=== PATIENT | female | born 1990 | race Caucasian/White ===

== ENCOUNTER 2018-04-11 17:20 | Emergency (ER) | payer OTHER ==
--- OUTSIDE RECORDS SUMMARY | 2018-04-11 17:23 | XMS REPORT | Clinical Summary ---
Author Author [facility] Organization [facility] Address Unknown Phone Unavailable Care Team Providers Care Sparker And Patcher Name Role Phone Asked, No Pcp PCP Unavailable Allergies Comments Active Allergy Reactions Severity Noted Date Lisinopril 10/26/2017 Medications End Date Status Medication Sig Dispensed Refills Start Date 10/31/2017 naproxen (NAPROSYN) 500 Take 1 tablet 10 tablet 0 201 MG tablet (500 mg 8 total) by mouth 2 (two) times a day with meals for 5 days. Active Problems Not on file Encounters Care Team Description Date Type Specialty Jeromy Rausch II, Markos Doherty DO Sprain of other ligament of left knee, initial encounter (Primary Dx) 10/26/2017 Emergency Emergency Medicine after 04/10/2017 Social History Date Tobacco Use Types Packs/Day Years Used Never Smoker Smokeless Tobacco: Never Used Alcohol Use Drinks/Week oz/Week Comments No Sex Assigned at Date Recorded Not on file Industry Job Start Date Occupation Not on file Not on file Not on file Travel End Travel History Travel Start No recent travel history available. Last Filed Vital Signs Time Taken Vital Sign Reading 10/26/2017 8:05 PM CDT Blood Pressure 179/116 10/26/2017 8:05 PM CDT Pulse 83 10/26/2017 5:19 PM CDT Temperature 37.1 C (98.7 F) 10/26/2017 8:05 PM CDT Respiratory Rate 18 10/26/2017 8:05 PM CDT Oxygen Saturation 95% - Inhaled Oxygen - Concentration - Weight - 10/26/2017 5:16 PM CDT Height 188 cm (6' 2") - Body Mass Index - Plan of Treatment Health Maintenance Due Date Last Done Comments CERVICAL CANCER SCREENING 2010 INFLUENZA VACCINE 09/28/2017 Procedures Comments Procedure Name Priority Date/Time Associated Diagnosis XR KNEE 1 OR 2 VW LEFT STAT 10/26/2017 7:08 PM CDT after 04/10/2017 Results * XR Knee 1 Or 2 Vw Left (10/26/2017 7:08 PM CDT) Narrative Performed At EXAMINATION: XR KNEE 1 OR 2 VW LEFT [facility] INDICATION: Knee paininitial exam COMPARISON: None IMPRESSION: 2 views of the knee were obtained. No visible acute fracture or dislocation. Large knee joint effusion. [facility]-[id number] Procedure Note Hm Interface, Radiology Results Incoming - 10/26/2017 7:22 PM CDT EXAMINATION: XR KNEE 1 OR 2 VW LEFT INDICATION: Knee pain initial exam COMPARISON: None IMPRESSION: 2 views of the knee were obtained. No visible acute fracture or dislocation. Large knee joint effusion. [facility]-[id number] Performing Organization Address City/State/Zipcode Phone Number [facility] [address] [place] [address] after 04/10/2017 Advance Directives Patient has advance care planning documents on file. For more information, arie santo contact: Willard Avina [address] [place] [address]
[2018-04-11] MEDS ORDERED: NIFEDIPINE 10 MG CAP PO STA (17:28)
[2018-04-11 18:08] LABS: BASOPHILS # (AUTO) 0.1 (0.0-0.1); BASOPHILS % 0.8 % (0.0-1.0); EOSINOPHILS # (AUTO) 0.1 (0.0-0.4); EOSINOPHILS % 1.2 % (0.0-6.0); HEMATOCRIT 45.4 % (34.2-44.1); HEMOGLOBIN 15.3 g/dL (12.0-16.0); LYMPHOCYTES # (AUTO) 3.4 (1.0-3.2); LYMPHOCYTES % 30.2 % (18.0-39.1); MEAN CORPUSCULAR HEMOGLOBIN 28.1 pg (28-32); MEAN CORPUSCULAR HGB CONC 33.7 g/dL (31-35); MEAN CORPUSCULAR VOLUME 83.5 fL (81-99); MONOCYTES # (AUTO) 0.8 (0.2-0.8); MONOCYTES % 7.2 % (4.4-11.3); NEUTROPHILS # (AUTO) 6.8 (2.1-6.9); NEUTROPHILS % 59.7 % (38.7-80.0); PLATELET COUNT 305 x10e3/uL (140-360); RED BLOOD COUNT 5.44 x10e6/uL (3.6-5.1); RED CELL DISTRIBUTION WIDTH 13.4 % (11.7-14.4)
[2018-04-11 18:20] LABS: INR 0.9
[2018-04-11 18:21] LABS: PARTIAL THROMBOPLASTIN TIME 33.5 seconds (23.8-35.5)
[2018-04-11 18:29] LABS: ALANINE AMINOTRANSFERASE 133 IU/L (0-55); ALBUMIN/GLOBULIN RATIO 1.1 (0.8-2.0); ALKALINE PHOSPHATASE 68 IU/L (40-150); ANION GAP 15.5 mmol/L (8-16); BLOOD UREA NITROGEN 8 mg/dL (7-26); BUN/CREATININE RATIO 10 (6-25); CALCIUM 9.6 mg/dL (8.4-10.2); CARBON DIOXIDE 25 mmol/L (22-29); CHLORIDE 101 mmol/L (98-107); CREATINE KINASE 121 IU/L (29-168); CREATININE, SERUM 0.82 mg/dL (0.57-1.11); EST GLOMERULAR FILTRATION RATE > 60 ML/MIN (60-); GLUCOSE 103 mg/dL (74-118); MAGNESIUM 1.9 MG/DL (1.3-2.1); POTASSIUM 3.5 mmol/L (3.5-5.1); SODIUM 138 mmol/L (136-145)
[2018-04-11 18:50] LABS: BILIRUBIN,URINE NEGATIVE (NEGATIVE); CLARITY,URINE HAZY (CLEAR); COLOR,URINE STRAW (YELLOW); KETONES,URINE NEGATIVE (NEGATIVE); LEUKOCYTE ESTERASE ,URINE NEGATIVE (NEGATIVE); NITRITE,URINE NEGATIVE (NEGATIVE); PREGNANCY TEST, URINE NEGATIVE (NEGATIVE); PROTEIN,URINE DIPSTICK 2+ (NEGATIVE); URINE UROBILINOGEN 0.2 mg/dL (0.2 - 1)
--- NOTE | 2018-04-11 18:56 | Diagnostic Imaging Report ---
Examination: Single AP view of the chest. COMPARISON: None. INDICATION: Hypertensive crisis DISCUSSION: Lines/tubes: None. Lungs: No definite consolidation. Left lower lung opacity May be due to to soft tissue attenuation. Pleura: No pleural effusion or pneumothorax. Heart and mediastinum: Heart size is prominent Bones and soft tissues: No acute bony abnormalities. IMPRESSION: No acute cardiopulmonary disease Signed by: Dr. Miguel Garcia M.D. on 04/11/2018 6:53 PM
[2018-04-11 19:05] LABS: AMORPHOUS SEDIMENT,URINE FEW (FEW); BACTERIA,URINE MANY /HPF; CALCIUM OXALATE CRYSTALS,UR FEW (FEW); EPITHELIAL CELLS,URINE MODERATE /LPF; RBC,URINE 0-5 /HPF (0-5)
[2018-04-11 19:06] LABS: MUCUS,URINE FEW (RARE)
--- NOTE | 2018-04-11 19:26 | Diagnostic Imaging Report ---
History: Headaches Comparison studies: None Technique: Axial images were obtained from the skull base to the vertex. Coronal and sagittal reconstructions obtained from the axial data. Dose modulation, iterative reconstruction, and/or weight based adjustment of the mA/kV was utilized to reduce the radiation dose to as low as reasonably achievable. Findings: Scalp/skull: No abnormalities. No fractures, blastic or lytic lesions. Extra-axial spaces: No masses. No fluid collections. Brain sulci: Appropriate for age. Ventricles: Normal in size and configuration. No hydrocephalus. Parenchyma: No abnormal densities. No masses, hemorrhage, acute or chronic cortical vascular insults. Sellar/suprasellar region: No abnormalities Craniocervical junction: Patent foramen magnum. No Chiari one malformation. IMPRESSION: 1. No abnormalities. 2. Pituitary tumor, mentioned in the patient's history, is beyond the scope of resolution for this noncontrast CT. Signed by: Dr. Juan C Cadena M.D. on 04/11/2018 7:23 PM
[2018-04-11 20:28] VITALS: BP 153/89
== END 2018-04-11 20:49 | disposition home or self-care (01) ==
LOC: ER 17:20
DX: I10 Essential (primary) hypertension (principal); E03.9 Hypothyroidism, unspecified; F41.9 Anxiety disorder, unspecified
CPT/HCPCS: 36415; 70450; 71045; 80053; 81001; 81025; 82550; 82553; 82948; 83735; 84443; 84484; 85025; 85610; 85730; 87086; 93005; 99284

== ENCOUNTER 2018-07-17 14:34 | Emergency (ER) | payer OTHER ==
[~2018-07-17] VITALS: Ht 182.9 cm; Wt 165.6 kg
--- OUTSIDE RECORDS SUMMARY | 2018-07-17 14:36 | XMS REPORT ---
Author Author [facility] Address Unknown Phone Unavailable Care Team Providers Care Pressure Supervisor Name Role Phone Susy SELLERS Unavailable Unavailable Problems This patient has no known problems. Allergies, Adverse Reactions, Alerts This patient has no known allergies or adverse reactions. Medications This patient has no known medications. Results Test Description Test Time Test Comments Text Results Atomic Results Result Comments CT BRAIN WO 2018-04-11 19:18:00 [place] [address] Patient Name: JERRY MOSS MR #: [id number] : 1990 Age/Sex: 27/F Req #: [id number] Adm Physician: Ordered by: ADRIÁN SELLERS MD Report #: [id number] Location: ER Room/Bed: Procedure: [id number] CT/CT BRAIN WO Exam Date: 04/11/18 Exam Time: 1830 REPORT STATUS: Signed History: Headaches Comparison studies: None Technique: Axial images were obtained from the skull base to the vertex. Coronal and sagittal reconstructions obtained from the axial data. Dose modulation, iterative reconstruction, and/or weight based adjustment of the mA/kV was utilized to reduce the radiation dose to as low as reasonably achievable. Findings: Scalp/skull: No abnormalities. No fractures, blastic or lytic lesions. Extra-axial spaces: No masses. No fluid collections. Brain sulci: Appropriate for age. Ventricles: Normal in size and configuration. No hydrocephalus. Parenchyma: No abnormal densities. No masses, hemorrhage, acute or chronic cortical vascular insults. Sellar/suprasellar region: No abnormalities Craniocervical junction: Patent foramen magnum. No Chiari one malformation. IMPRESSION: 1. No abnormalities. 2. Pituitary tumor, mentioned in the patient's history, is beyond the scope of resolution for this noncontrast CT. Signed by: Dr. Juan C Cadena M.D. on 04/11/2018 7:23 PM Dictated By: JUAN C CADENA MD, MD 22 Transcribed By: AZALEA on 04/11/181922 COPY TO: ADRIÁN SELLERS MD CHEST SINGLE (PORTABLE) 2018-04-11 18:51:00 [place] [address] Patient Name: JERRY MOSS MR #: [id number] : 1990 Age/Sex: 27/F Req #: [id number] Adm Physician: Ordered by: ADRIÁN SELLERS MD Report #: [id number] Location: ER Room/Bed: Procedure: [id number] DX/CHEST SINGLE (PORTABLE) Exam Date: 04/11/18 Exam Time: 1830 REPORT STATUS: Signed Examination: Single AP view of the chest. COMPAR KEYANA: None. INDICATION: Hypertensive crisis DISCUSSION: Lines/tubes: None. Lungs: No definite consolidation. Left lower lung opacity May be due to to soft tissue attenuation. Pleura: No pleural effusion or pneumothorax. Heart and mediastinum: Heart size is prominent Bones and soft tissues: No acute bony abnormalities. IMPRESSION: No acute cardiopulmonary disease Signed by: Dr. Danny Dean M.D. on 04/11/2018 6:53 PM Dictated By: DANNY DEAN MD 52 Transcribed By: AZALEA on 04/11/181852 COPY TO: ADRIÁN SELLERS MD
--- OUTSIDE RECORDS SUMMARY | 2018-07-17 14:36 | XMS REPORT | Clinical Summary ---
Author Author [facility] Address Unknown Phone Unavailable Care Team Providers Care Research Asst Name Role Phone Asked, No Pcp PCP [...] (Primary Dx) 10/26/2017 Emergency Emergency Medicine after 07/16/2017 Social History Date Tobacco Use Types Packs/Day [...] Comments CERVICAL CANCER SCREENING 2010 INFLUENZA VACCINE 09/28/2018 Procedures Comments Procedure Name Priority Date/Time Associated Diagnosis XR KNEE 1 OR 2 VW LEFT STAT 10/26/2017 7:08 PM CDT after 07/16/2017 Results * XR Knee 1 Or 2 Vw Left (10/26/2017 7:08 PM CDT) Specimen Narrative Performed At EXAMINATION: XR KNEE 1 OR 2 VW LEFT [facility] INDICATION: Knee paininitial exam COMPARISON: None IMPRESSION: 2 views of the knee were obtained. No visible acute fracture or dislocation. Large knee joint effusion. [id number] Procedure Note Hm Interface, Radiology Results Incoming - 10/26/2017 7:22 PM CDT EXAMINATION: XR KNEE 1 OR 2 VW LEFT INDICATION: Knee pain initial exam COMPARISON: None IMPRESSION: 2 views of the knee were obtained. No visible acute fracture or dislocation. Large knee joint effusion. [facility]-[id number] Performing Organization Address City/State/Zipcode Phone Number [facility] [address] [place] [address] after 07/16/2017 Advance Directives Patient has advance care planning documents on file. For more information, arie santo contact: Willard Avina [address] [place] [address]
[2018-07-17] MEDS ORDERED: ASPIRIN 81 MG CHEW TAB PO ONE (15:00)
[2018-07-17 15:16] LABS: BASOPHILS # (AUTO) 0.1 (0.0-0.1); EOSINOPHILS # (AUTO) 0.1 (0.0-0.4); EOSINOPHILS % 1.8 % (0.0-6.0); HEMATOCRIT 42.9 % (34.2-44.1); HEMOGLOBIN 13.9 g/dL (12.0-16.0); LYMPHOCYTES % 38.1 % (18.0-39.1); MEAN CORPUSCULAR HEMOGLOBIN 28.2 pg (28-32); MEAN CORPUSCULAR HGB CONC 32.4 g/dL (31-35); MONOCYTES # (AUTO) 0.6 (0.2-0.8); MONOCYTES % 7.8 % (4.4-11.3); NEUTROPHILS # (AUTO) 4.1 (2.1-6.9); NEUTROPHILS % 50.8 % (38.7-80.0); PLATELET COUNT 256 x10e3/uL (140-360); RED BLOOD COUNT 4.93 x10e6/uL (3.6-5.1); RED CELL DISTRIBUTION WIDTH 13.4 % (11.7-14.4)
[2018-07-17 15:32] LABS: ALANINE AMINOTRANSFERASE 59 IU/L (0-55); ALBUMIN 3.7 g/dL (3.5-5.0); ALKALINE PHOSPHATASE 61 IU/L (40-150); ANION GAP 12.6 mmol/L (8-16); BLOOD UREA NITROGEN 11 mg/dL (7-26); BUN/CREATININE RATIO 13 (6-25); CALCIUM 9.6 mg/dL (8.4-10.2); CARBON DIOXIDE 25 mmol/L (22-29); CHLORIDE 103 mmol/L (98-107); CREATINE KINASE 123 IU/L (29-168); CREATININE, SERUM 0.84 mg/dL (0.57-1.11); EST GLOMERULAR FILTRATION RATE > 60 ML/MIN (60-); GLUCOSE 97 mg/dL (74-118); POTASSIUM 3.6 mmol/L (3.5-5.1); SODIUM 137 mmol/L (136-145)
--- NOTE | 2018-07-17 15:41 | Diagnostic Imaging Report ---
EXAMINATION: CHEST SINGLE (PORTABLE) INDICATION: Chest pain. COMPARISON: Chest radiograph 04/11/2018. FINDINGS: TUBES and LINES: None. LUNGS: Low lung volumes which decreases sensitivity and specificity for pathology. Central vascular congestion without pulmonary edema. Patchy bibasilar opacities. PLEURA: No pleural effusion or pneumothorax. HEART AND MEDIASTINUM: The cardiomediastinal silhouette is unremarkable. BONES AND SOFT TISSUES: No acute osseous abnormality. UPPER ABDOMEN: No free air under the diaphragm. IMPRESSION: Low lung volumes with patchy bibasilar opacities, likely atelectasis. Signed by: Dr. Cresencio Donovan MD on 07/17/2018 3:37 PM
[2018-07-17 16:58] LABS: CLARITY,URINE CLEAR (CLEAR); COLOR,URINE YELLOW (YELLOW); LEUKOCYTE ESTERASE ,URINE NEGATIVE (NEGATIVE); NITRITE,URINE NEGATIVE (NEGATIVE)
[2018-07-17 16:59] LABS: BILIRUBIN,URINE NEGATIVE (NEGATIVE); KETONES,URINE NEGATIVE (NEGATIVE); PROTEIN,URINE DIPSTICK NEGATIVE (NEGATIVE); URINE UROBILINOGEN 0.2 mg/dL (0.2 - 1)
[2018-07-17 17:01] LABS: BACTERIA,URINE FEW /HPF; EPITHELIAL CELLS,URINE FEW /LPF; RBC,URINE 21-50 /HPF (0-5); WBC,URINE (MAN) 0-5 /HPF (0-5)
[2018-07-17 17:06] VITALS: BP 117/84
== END 2018-07-17 17:57 | disposition home or self-care (01) ==
LOC: ER 14:34
DX: R00.2 Palpitations (principal); R07.89 Other chest pain; I10 Essential (primary) hypertension; E11.9 Type 2 diabetes mellitus without complications
CPT/HCPCS: 36415; 71045; 80053; 81001; 82550; 82553; 82948; 84484; 84702; 85025; 85379; 99284

== ENCOUNTER 2018-08-24 22:26 | Emergency (ER) | payer SELFPAY ==
[~2018-08-24] VITALS: Ht 182.9 cm; Wt 165.6 kg
--- OUTSIDE RECORDS SUMMARY | 2018-08-24 22:29 | XMS REPORT | Clinical Summary ---
Author Author [facility] Address Unknown Phone Unavailable Care Team Providers Care Elevator Runner Name Role Phone Asked, No Pcp PCP [...] (Primary Dx) 10/26/2017 Emergency Emergency Medicine after 08/23/2017 Social History Date Tobacco Use Types Packs/Day [...] Health Maintenance Due Date Last Done Comments INFLUENZA VACCINE 09/28/2018 Procedures Comments Procedure Name Priority Date/Time Associated Diagnosis XR KNEE 1 OR 2 VW LEFT STAT 10/26/2017 7:08 PM CDT after 08/23/2017 Results * XR Knee 1 Or 2 Vw Left (10/26/2017 7:08 PM CDT) Specimen Narrative Performed At EXAMINATION: XR KNEE 1 OR 2 VW LEFT [facility] INDICATION: Knee paininitial exam COMPARISON: None IMPRESSION: 2 views of the knee were obtained. No visible acute fracture or dislocation. Large knee joint effusion. [facility]-[id number] Procedure Note Hm Interface, Radiology Results Incoming - 10/26/2017 7:22 PM CDT EXAMINATION: XR KNEE 1 OR 2 VW LEFT INDICATION: Knee pain initial exam COMPARISON: None IMPRESSION: 2 views of the knee were obtained. No visible acute fracture or dislocation. Large knee joint effusion. [facility]-[id number] Performing Organization Address City/State/Zipcode Phone Number [facility] [address] [place] [address] after 08/23/2017 Advance Directives Patient has advance care planning documents on file. For more information, arie santo contact: Willard Avina [address] [place] [address]
[2018-08-24 23:43] LABS: BASOPHILS # (AUTO) 0.1 (0.0-0.1); BASOPHILS % 0.7 % (0.0-1.0); EOSINOPHILS # (AUTO) 0.1 (0.0-0.4); HEMATOCRIT 42.4 % (34.2-44.1); LYMPHOCYTES # (AUTO) 3.3 (1.0-3.2); LYMPHOCYTES % 34.7 % (18.0-39.1); MEAN CORPUSCULAR HEMOGLOBIN 28.1 pg (28-32); MONOCYTES # (AUTO) 0.6 (0.2-0.8); MONOCYTES % 6.4 % (4.4-11.3); NEUTROPHILS # (AUTO) 5.3 (2.1-6.9); NEUTROPHILS % 56.6 % (38.7-80.0); PLATELET COUNT 268 x10e3/uL (140-360); RED BLOOD COUNT 4.99 x10e6/uL (3.6-5.1); RED CELL DISTRIBUTION WIDTH 13.8 % (11.7-14.4)
[2018-08-24 23:44] LABS: BILIRUBIN,URINE NEGATIVE (NEGATIVE); CLARITY,URINE CLEAR (CLEAR); COLOR,URINE YELLOW (YELLOW); KETONES,URINE NEGATIVE (NEGATIVE); LEUKOCYTE ESTERASE ,URINE NEGATIVE (NEGATIVE); NITRITE,URINE NEGATIVE (NEGATIVE); PROTEIN,URINE DIPSTICK NEGATIVE (NEGATIVE); URINE UROBILINOGEN 0.2 mg/dL (0.2 - 1)
[2018-08-24 23:45] LABS: PREGNANCY TEST, URINE NEGATIVE (NEGATIVE)
[2018-08-25 00:03] LABS: BACTERIA,URINE FEW /HPF; EPITHELIAL CELLS,URINE FEW /LPF; MUCUS,URINE MANY (RARE)
[2018-08-25 00:15] LABS: ALANINE AMINOTRANSFERASE 69 IU/L (0-55); ALBUMIN 4.1 g/dL (3.5-5.0); ALBUMIN/GLOBULIN RATIO 1.2 (0.8-2.0); ALKALINE PHOSPHATASE 58 IU/L (40-150); ANION GAP 13.7 mmol/L (8-16); BLOOD UREA NITROGEN 11 mg/dL (7-26); BUN/CREATININE RATIO 13 (6-25); CALCIUM 9.7 mg/dL (8.4-10.2); CARBON DIOXIDE 26 mmol/L (22-29); CHLORIDE 104 mmol/L (98-107); CREATININE, SERUM 0.86 mg/dL (0.57-1.11); EST GLOMERULAR FILTRATION RATE > 60 ML/MIN (60-); GLUCOSE 87 mg/dL (74-118); POTASSIUM 3.7 mmol/L (3.5-5.1); SODIUM 140 mmol/L (136-145)
[2018-08-25 00:45] VITALS: BP 159/100
== END 2018-08-25 01:00 | disposition home or self-care (01) ==
LOC: ER 22:26
DX: R10.30 Lower abdominal pain, unspecified (principal); N30.91 Cystitis, unspecified with hematuria; I10 Essential (primary) hypertension; E11.9 Type 2 diabetes mellitus without complications; F41.9 Anxiety disorder, unspecified; E78.5 Hyperlipidemia, unspecified
CPT/HCPCS: 36415; 80053; 81001; 81025; 82948; 85025; 99283